=== PATIENT | male | born 1965 | race Caucasian/White ===

== ENCOUNTER 2018-05-03 07:11 | Day surgery (SDC) | payer OTHER, SELFPAY ==
[2018-05-03 07:20] VITALS: BP 121/80; PULSE 81; RESP 16; TEMP 36.2; O2SAT 98
--- NOTE | 2018-05-03 10:32 | DSUDISCH ---
[facility] Discharge - Discharge Orders - Discharge Plan Activity:: Activity as Tolerated - Discharge Instructions Micromedex Instructions: Colonoscopy (DC)
[2018-05-03] MEDS: Lactated Ringers 1,000 ML 900 ML IV (10:41)
--- NOTE | 2018-05-03 11:00 | BOWEL_PTH ---
PATIENT: Jeff Quintanilla LOC: [facility] U#:[id number] AGE/SX: 52/M ROOM: RE05/03/[address]: Abdelrahman Mast DO : 1965 BED: DIS: 05/03/2018 SPEC #: [id number] RECD: 05/03/18 13:10 STATUS: JACKY RE #: [id number] BLAIR: 05/03/18 11:[address]: Abdelrahman Mast DEPT: Surgical Specimen RECD BY: Haleigh Restrepo ENTERED: 05/03/18 13:11 SP TYPE: Bowel OTHR DR: Beatriz Mendoza Tissues: 1 - BIOPSY BOWEL 2 - BIOPSY BOWEL Procedures: GROSS AND MICRO LEVEL 4 Comments: [id number]
[2018-05-03 11:26] VITALS: BP 102/53; PULSE 68; RESP 16; TEMP 35.7; O2SAT 97
[2018-05-03 11:45] VITALS: BP 103/71; PULSE 65; RESP 16; TEMP 36; O2SAT 95
--- NOTE | 2018-05-03 12:27 | COLE_ITS ---
REPORT OF OPERATIVE PROCEDURE - COLONOSCOPY DATE OF PROCEDURE May 03, 2018 PREOPERATIVE DIAGNOSIS Screening colonoscopy. POSTOPERATIVE DIAGNOSIS Screening colonoscopy. PROCEDURE Colonoscopy to the cecum with biopsies by cold forceps. SURGEON Abdelrahman Mast D.O. ANESTHESIA Monitored Anesthesia Care by Dyana Guillory CRNA ASA-II Mallampati Class - 2 COLON PREP MiraLax bisacodyl prep. PREP QUALITY Excellent. ESTIMATED BLOOD LOSS Minimal. SPECIMENS 1. Random colon biopsies. 2. Random rectal biopsies. INDICATIONS This is a 52-year-old male presenting for colonoscopy for a screening colonoscopy. . Most recently in the last week, bloody diarrhea, where he had similar symptoms to what he had in the past and he had been diagnosed with microscopic colitis. He has been doing well since then. It was recommended he undergo colonoscopy. The risks and benefits of which were discussed with him. All of his questions were answered to his satisfaction. Consented was obtained to proceed. FINDINGS On examining the colon from the cecum to anus, no gross abnormalities were noted , and random biopsies were taken throughout the colon and rectum and submitted for pathology. PROCEDURE The patient was seen in the preanesthesia staging area. All questions were answered. Patient's identification was confirmed and consent signed. The patient was then brought to the procedure room. The appropriate time-out was taken to confirm patient and procedure details. Monitoring devices for telemetry , blood pressure, O2 saturation and end-tidal CO2 were applied. Anesthesia was administered and once adequate sedation was achieved, the procedure was started. A digital rectal examination was performed. There was good rectal tone, no gross masses, no gross blood and no abnormalities of the anal canal or margin noted. The Olympus variable stiffness colonoscope was then advanced from the anus to the cecum under direct visualization. The cecum was identified by the appendiceal orifice and the ileocecal valve. The scope was withdrawn from the cecum to the rectum in a circumferential manner, in so doing, the colon looked grossly normal, but random biopsies were taken throughout the colon and submitted for pathology. The scope was then withdrawn into the rectum, random biopsies again were taken. The rectum appeared grossly normal. The scope was then retroflexed in the rectum and no further abnormalities of the rectum or the anorectal junction were noted. The scope was then withdrawn, terminating the procedure. There were no apparent complications during the case. The patient tolerated the procedure very well and was brought to the Day Surgery Unit recovery area in good condition. PLAN We will await pathology before making further recommendations.
== END 2018-05-03 11:58 | disposition home or self-care (01) ==
LOC: SUR 05-04 10:19
PROVIDERS: PCP Nurse Practitioner Family; Visit Provider Surgery
DX: Z12.11 Encounter for screening for malignant neoplasm of colon (principal); K92.1 Melena; R19.7 Diarrhea, unspecified
CPT/HCPCS: 45380; 88305

== ENCOUNTER 2020-08-16 11:47 | Outpatient (REF) | payer OTHER, SELFPAY ==
[2020-08-16 19:01] LABS: HCT 41.8 % (40.0-50.0); HGB 14.5 g/dL (13.5-17.5); MCH 32.3 pg (27.0-33.0); MCHC 34.7 % (32.0-36.0); MCV 93.1 fL (80-95); MPV 11.4 fL (8.0-11.0); Platelet Count 244 10^3/uL (130-400); RBC 4.49 10^6/uL (4.36-5.78); RDW 11.9 % (11.8-14.1); RDW-SD 41.4 fL; WBC 4.54 10^3/uL (4.4-10.8)
[2020-08-16 19:29] LABS: ALT 28 U/L (16-63); AST 16 U/L (15-37); Alkaline Phosphatase 69 U/L (46-116); Anion Gap 9.2 mmol/L (3-11); BUN 19 mg/dL (7-18); Bilirubin, Total 0.3 mg/dL (0.2-1.0); CO2 28.8 mmol/L (21.0-32.0); Calcium 8.8 mg/dL (8.5-10.1); Calculated LDL 157 mg/dL (<100); Chloride 106 mmol/L (98-107); Cholesterol 223 mg/dL (<200); Glucose 89 mg/dL (74-106); HDL Cholesterol 53 mg/dL (40-60); Sodium 144 mmol/L (136-145); Total Protein 7.3 g/dL (6.4-8.2); Triglyceride 66 mg/dL (<150)
[2020-08-18 09:48] LABS: Hepatitis C Ab w Rflx HCV PCR Negative (Negative)
[2020-08-18 10:10] LABS: HIV-1/2 Ag & Ab Screen Negative (Negative)
== END 2020-08-16 12:07 ==
LOC: NCHCN 11:47
PROVIDERS: PCP Nurse Practitioner Family; Visit Provider Nurse Practitioner Family
DX: Z00.00 Encounter for general adult medical examination without abnormal findings (principal); E78.5 Hyperlipidemia, unspecified; Z11.59 Encounter for screening for other viral diseases; Z11.4 Encounter for screening for human immunodeficiency virus [HIV]; Z51.81 Encounter for therapeutic drug level monitoring
CPT/HCPCS: 80053; 80061; 85027; 86803; 87389

== ENCOUNTER 2022-08-22 18:29 | Outpatient (REF) | payer OTHER, SELFPAY ==
[2022-08-22 16:05] LABS: Abs Immature Grans 0.02 10^3/uL (0.0-0.06); Absolute Basophil Count 0.07 10^3/uL (0.0-0.2); Absolute Eosinophil Count 0.06 10^3/uL (0.0-0.7); Absolute Lymphocyte Count 1.34 10^3/uL (1.2-3.4); Absolute Monocyte Count 0.38 10^3/uL (0.1-0.8); Absolute Neutrophil Count 4.16 10^3/uL (1.2-6.7); Basophils % 1.2; HCT 44.3 % (40.0-50.0); HGB 15.3 g/dL (13.5-17.5); Immature Grans % 0.3; Lymphocytes % 22.2; MCH 32.3 pg (27.0-33.0); MCHC 34.5 % (32.0-36.0); MCV 94 fL (80-95); MPV 11.3 fL (8.0-11.0); Monocytes % 6.3; Platelet Count 261 10^3/uL (130-400); RBC 4.73 10^6/uL (4.36-5.78); RDW 12.5 % (11.8-14.1); RDW-SD 43.4 fL; WBC 6.03 10^3/uL (4.4-10.8)
[2022-08-22 16:25] LABS: ALT 26 U/L (16-63); AST 19 U/L (15-37); Albumin 4.4 g/dL (3.4-5.0); Alkaline Phosphatase 85 U/L (46-116); Anion Gap 7.6 mmol/L (3-11); BUN 13 mg/dL (7-18); Bilirubin, Total 0.5 mg/dL (0.2-1.0); CO2 30.4 mmol/L (21.0-32.0); CREATININE 0.9 mg/dL (0.70-1.30); Calcium 9.7 mg/dL (8.5-10.1); Calculated LDL 183 mg/dL (<100); Chloride 103 mmol/L (98-107); Cholesterol 263 mg/dL (<200); Estimated GFR 100.24 (mL/min/1.73m2); Glucose 104 mg/dL (74-106); HDL Cholesterol 54 mg/dL (40-60); Potassium 4.3 mmol/L (3.5-5.1); Sodium 141 mmol/L (136-145); Total Protein 7.9 g/dL (6.4-8.2); Triglyceride 131 mg/dL (<150)
[2022-08-22 17:11] LABS: Vitamin D 25 Total 11.5 ng/mL (30-100)
== END 2022-08-22 18:30 | disposition home or self-care (01) ==
LOC: NCHCN 18:29
PROVIDERS: PCP Nurse Practitioner Family; Visit Provider Nurse Practitioner Family
DX: E78.5 Hyperlipidemia, unspecified (principal); F41.9 Anxiety disorder, unspecified; Z13.1 Encounter for screening for diabetes mellitus; Z00.00 Encounter for general adult medical examination without abnormal findings
CPT/HCPCS: 80053; 80061; 82306; 85025

== ENCOUNTER 2023-02-22 16:26 | Outpatient (REF) | payer OTHER, SELFPAY ==
[2023-02-22 17:40] LABS: ALT 31 U/L (16-63); AST 22 U/L (15-37); Albumin 4.5 g/dL (3.4-5.0); Alkaline Phosphatase 68 U/L (46-116); Anion Gap 10.3 mmol/L (3-11); BUN 11 mg/dL (7-18); Bilirubin, Total 0.4 mg/dL (0.2-1.0); CO2 27.7 mmol/L (21.0-32.0); CREATININE 0.9 mg/dL (0.70-1.30); Calcium 9.7 mg/dL (8.5-10.1); Calculated LDL 97 mg/dL (<100); Chloride 104 mmol/L (98-107); Cholesterol 177 mg/dL (<200); Estimated GFR 99.62 (mL/min/1.73m2); Glucose 105 mg/dL (74-106); HDL Cholesterol 52 mg/dL (40-60); Potassium 4.2 mmol/L (3.5-5.1); Sodium 142 mmol/L (136-145); Total Protein 8.6 g/dL (6.4-8.2); Triglyceride 141 mg/dL (<150)
== END 2023-02-22 16:27 | disposition home or self-care (01) ==
LOC: NCHCN 16:26
PROVIDERS: PCP Nurse Practitioner Family; Visit Provider Nurse Practitioner Family
DX: E78.5 Hyperlipidemia, unspecified (principal); E55.9 Vitamin D deficiency, unspecified; Z79.899 Other long term (current) drug therapy
CPT/HCPCS: 80053; 80061

== ENCOUNTER 2023-08-23 17:23 | Outpatient (REF) | payer OTHER, SELFPAY ==
[2023-08-23 18:55] LABS: ALT 27 U/L (16-63); AST 17 U/L (15-37); Albumin 4.2 g/dL (3.4-5.0); Alkaline Phosphatase 75 U/L (46-116); Anion Gap 7.7 mmol/L (3-11); BUN 13 mg/dL (7-18); Bilirubin, Total 0.5 mg/dL (0.2-1.0); CO2 28.3 mmol/L (21.0-32.0); CREATININE 1.2 mg/dL (0.70-1.30); Calcium 9.5 mg/dL (8.5-10.1); Chloride 104 mmol/L (98-107); Estimated GFR 70.53 (mL/min/1.73m2); Glucose 97 mg/dL (74-106); Potassium 3.9 mmol/L (3.5-5.1); Sodium 140 mmol/L (136-145); Total Protein 7.7 g/dL (6.4-8.2)
[2023-08-23 19:17] LABS: Vitamin D 25 Total 33.6 ng/mL (30-100)
[2023-08-24 18:00] LABS: PSA, Screening 0.4 ng/mL (<=3.5)
== END 2023-08-23 17:24 | disposition home or self-care (01) ==
LOC: NCHCN 17:23
PROVIDERS: PCP Nurse Practitioner Family; Visit Provider Nurse Practitioner Family
DX: E55.9 Vitamin D deficiency, unspecified (principal); E78.5 Hyperlipidemia, unspecified; Z12.5 Encounter for screening for malignant neoplasm of prostate
CPT/HCPCS: 80053; 82306; 84153

== ENCOUNTER 2024-09-10 14:52 | Outpatient (REF) | payer BC, SELFPAY ==
[2024-09-10 19:07] LABS: ALT 27 U/L (16-63); AST 20 U/L (15-37); Albumin 4.3 g/dL (3.4-5.0); Alkaline Phosphatase 103 U/L (46-116); Anion Gap 10.7 mmol/L (3-11); BUN 12 mg/dL (7-18); Bilirubin, Total 0.51 mg/dL (0.2-1.0); CO2 29.3 mmol/L (21.0-32.0); Calcium 9.4 mg/dL (8.5-10.1); Calculated LDL 91 mg/dL (<100); Chloride 107 mmol/L (98-107); Cholesterol 160 mg/dL (<200); Estimated GFR 87.24 (mL/min/1.73m2); Glucose 89 mg/dL (74-106); HDL Cholesterol 49 mg/dL (40-60); Potassium 4.6 mmol/L (3.5-5.1); Sodium 147 mmol/L (136-145); Triglyceride 101 mg/dL (<150)
== END 2024-09-10 14:53 | disposition home or self-care (01) ==
LOC: NCHCN 14:52
PROVIDERS: PCP Nurse Practitioner Family; Visit Provider Nurse Practitioner Family
DX: Z00.00 Encounter for general adult medical examination without abnormal findings (principal)
CPT/HCPCS: 80053; 80061